=== PATIENT | male | born 1985 | race Caucasian/White ===

== ENCOUNTER 2019-01-03 09:25 | Emergency (ER) | payer OTHER, MEDICAID ==
[~2019-01-03] VITALS: Ht 177.8 cm; Wt 106.6 kg
[~2019-01-03 09:25] MED LIST: CHERATUSSIN DA480 ML PO; DOXYCYCLINE 10100 MG PO; KEFLEX500 MG PO; NOHOMEMEDICATIONS; NORCO 5-325 TA1 EACH PO; PERCOCET 5-3251 EACH PO; ZPAK PO
[2019-01-03] MEDS ORDERED: SYMBICORT160 MCG/4. INH (09:37)
[2019-01-03] MEDS ORDERED: XYZAL5 MG PO (09:39)
[2019-01-03] MEDS ORDERED: FLEXERIL PO (09:42)
[2019-01-03] MEDS ORDERED: PROAIR HFA8.5 GM INH (09:42)
[2019-01-03] MEDS ORDERED: AUGMENTIN 875-1 EACH PO (11:28)
[2019-01-03 11:51] VITALS: BP 124/87
== END 2019-01-03 11:53 | disposition home or self-care (01) ==
LOC: M.ERS 09:25
DX: S02.31XA Fracture of orbital floor, right side, initial encounter for closed fracture (principal); J32.0 Chronic maxillary sinusitis; F17.210 Nicotine dependence, cigarettes, uncomplicated; Z88.2 Allergy status to sulfonamides; W22.8XXA Striking against or struck by other objects, initial encounter; Y93.89 Activity, other specified; Y92.89 Other specified places as the place of occurrence of the external cause; Y99.8 Other external cause status